=== PATIENT | female | born 1935 | race Caucasian/White ===

== ENCOUNTER 2022-11-09 09:59 | Observation (INO) | payer MEDICARE, OTHER ==
[2022-11-09] MEDS ORDERED: Sodium Chloride 0.9% 1000 ML 1,000 ML IV SCH (10:15)
--- NOTE | 2022-11-09 10:22 | ERPHSYRPT ---
- History of Present Illness Time Seen by Provider: 11/09/22 10:15 Source: EMS, old records Exam Limitations: clinical condition Physician History: This is an 87-year-old white female patient of Dr. Anderson brought to the emergency room by EMS service for altered level of consciousness. Patient was last seen approximately 8:52 PM last night where she was alert and oriented. This morning, she was sitting in a recliner with a low respiratory rate and not responding to family members who woke up to find her in that condition. EMS arrived and she was responding to painful stimuli but not responding to any other stimuli. Patient was in route to [facility] when the paramedics opted to divert her to our facility because of a very low respiration rate and they were using the Ambu bag to help ventilate this patient. Patient is DNR. This was reported to the paramedics verbally. In addition, the paramedics were provided a DO NOT RESUSCITATE document. Patient underwent an ERCP on 11/05/2022 in [place] at the [facility]. There were some postoperative complications that necessitated the patient stay an additional day and she was discharged home on 11/06/2022. Patient's blood sugar in route was 138. Patient's systolic blood pressure on arrival to the emergency department was 168. Timing/Duration: today Severity: moderate Character of Deficits: other (Altered level of consciousness) Deficits: cannot stand, cannot walk Baseline/Normal Cognition: alert oriented x 3 Current Cognition: poor alertness Baseline Gait: walks w/o assistance Associated Symptoms: other Allergies/Adverse Reactions: No Known Drug Allergies Allergy (Verified 11/09/22 10:38) Home Medications: Amlodipine Besylate 5 mg [Norvasc 5 mg] 5 mg PO DAILY 09/25/13 [History] Hydrochlorothiazide 25 mg [hydroDIURIL 25 MG] 25 mg PO DAILY 09/25/13 [History] Quinapril HCl 20 mg PO DAILY 09/25/13 [History] Furosemide [Lasix] 1 tab PO DAILY 11/09/22 [History] Magnesium Oxide 400 mg [Mag-Ox 400] 1 tab PO DAILY 11/09/22 [History] Paroxetine HCl 20 mg [Paxil 20 MG] 1 tab PO DAILY 11/09/22 [History] Potassium Chloride 1 tab PO DAILY 11/09/22 [History] Hx Influenza Vaccination/Date Given: Yes (2012) Hx Pneumococcal Vaccination/Date Given: Yes (2011) Travel Risk - International Travel Have you traveled outside of the country in past 3 weeks: No - Coronavirus Screening Are you exhibiting any of the following symptoms?: No Close contact with a COVID-19 positive Pt in past 14-21 Days: No - Review of Systems Constitutional: No Symptoms, Other (Patient unable to answer secondary to altered level of consciousness) Eyes: No Symptoms Ears, Nose, & Throat: No Symptoms Respiratory: No Symptoms Cardiac: No Symptoms Abdominal/Gastrointestinal: No Symptoms Genitourinary Symptoms: No Symptoms Musculoskeletal: No Symptoms Skin: No Symptoms Neurological: Lethargy, Other (Altered level of consciousness) Psychological: No Symptoms Endocrine: No Symptoms Hematologic/Lymphatic: No Symptoms Immunological/Allergic: No Symptoms All Other Systems: Reviewed and Negative - Past Medical History Pertinent Past Medical History: Yes Neurological History: No Pertinent History ENT History: Cataracts, Macular Degeneration, Other Cardiac History: Hypertension Respiratory History: No Pertinent History Endocrine Medical History: No Pertinent History Musculoskeletal History: Osteoarthritis GI Medical History: Polyps, Hemorrhoids, GERD History: No Pertinent History Psycho-Social History: No Pertinent History Female Reproductive Disorders: No Pertinent History Other Medical History: CARPAL TUNNEL SX NIKI 1996, CHOLECYSTECTOMY 2000, CATARACT SURGERY AND IMPLANTS 2003, LASER SURGERY BOTH EYES 2004 AND 2008 DUE TO [place] OATERS - Past Surgical History Past Surgical History: Yes Neuro Surgical History: No Pertinent History Cardiac: No Pertinent History Respiratory: No Pertinent History Gastrointestinal: Cholecystectomy Genitourinary: No Pertinent History Female Surgical History: Hysterectomy, Other Other Surgical History: bilateral cataracts. bilateral carpel tunnel. bladder tie up - Social History Smoking Status: Never smoker Exposure to second hand smoke: No Drug Use: none - Nursing Vital Signs Nursing Vital Signs: Initial Vital Signs Temperature 97.6 F 11/09/22 10:05 Pulse Rate 88 11/09/22 10:05 Respiratory Rate 10 L 11/09/22 10:05 Blood Pressure 173/79 11/09/22 10:05 O2 Sat by Pulse Oximetry 100 11/09/22 10:05 Pain Scale Pain Intensity 0 - Dennis Coma Scale Best Eye Response (Dennis): (2) open to pain Best Verbal Response (Dennis): (1) no verbal response Best Motor Response (Dennis): (4) withdraws to pain [place] Total: 7 - Physical Exam General Appearance: lethargy Eye Exam: bilateral eye: normal inspection, PERRL, EOMI (Unable to assess) Ears, Nose, Throat Exam: dry mucous membranes Respiratory: normal breath sounds, lungs clear, airway intact, other (Low respiratory rate), No chest tenderness, No respiratory distress Cardiovascular: regular rate/rhythm, normal heart sounds, normal peripheral pulses Gastrointestinal: soft, normal bowel sounds, No tenderness Pelvic Exam: not done Rectal Exam: not done Back Exam: normal inspection, other, No CVA tenderness, No vertebral tenderness Extremity Exam: pelvis stable, other (Patient's right side seems more stiff than the left side) Mental Status: lethargy Skin Exam: normal color, warm, dry SpO2 Interpretation: normal O2 Delivery: Oxymask - Course Nursing assessment & vital signs reviewed: Yes EKG Interpreted by Me: RATE (84), Sinus Rhythm, NORMAL AXIS, NORMAL INTERVALS, NORMAL QRS, NORMAL ST-T, Other (No acute ischemic changes) Ordered Tests: Active Orders 24 hr Category Date Time Status Catheter-Albert Banda STAT Care 11/09/22 10:12 Active Gastric Tube Insertion STAT Care 11/09/22 11:40 Active IV Insertion STAT Care 11/09/22 10:12 Active IV Insertion-2nd Peripheral STAT Care 11/09/22 11:34 Active ABDOMEN AND PELVIS W/0 CONTRAS [CT] Stat Exams 11/09/22 10:14 Completed CHEST 1 VIEW (PORTABLE) Stat Exams 11/09/22 12:00 Completed HEAD WITHOUT CONTRAST [CT] Stat Exams 11/09/22 10:14 Completed ABG [ARTERIAL BLOOD GASES] Stat Lab 11/09/22 10:45 Completed AMYLASE Stat Lab 11/09/22 10:40 Completed BLOOD CULTURE Stat Lab 11/09/22 11:30 Received CBC W DIFF Stat Lab 11/09/22 10:40 Completed CMP Stat Lab 11/09/22 10:40 Completed LIPASE Stat Lab 11/09/22 10:40 Completed UA W/RFX CULTURE Stat Lab 11/09/22 Completed Transfer Order Routine Transfer 11/09/22 Ordered Medication Summary Generic Name Dose Route Start Last Admin Trade Name Freq PRN Reason Stop Dose Admin Sodium Chloride 1,000 mls @ 100 mls/hr 11/09/22 10:15 11/09/22 10:50 Sodium Chloride 0.9% 1000 Ml IV 12/09/22 10:14 100 mls/hr .Q10H VIKAS Administration Discontinued Medications Generic Name Dose Route Start Last Admin Trade Name Shama PRN Reason Stop Dose Admin Lactulose 20 gm 11/09/22 11:45 11/09/22 12:25 Lactulose 20 Gm/30 Ml Udcup PO 11/09/22 11:46 20 gm STAT ONE Administration Ondansetron HCl 4 mg 11/09/22 11:19 11/09/22 11:37 Ondansetron Hcl 4 Mg/2 Ml Vial IV 11/09/22 11:20 4 mg STAT ONE Administration Ondansetron HCl Confirm 11/09/22 11:35 Ondansetron Hcl 4 Mg/2 Ml Vial Administered 11/09/22 11:36 Dose 4 mg .ROUTE .STK-MED ONE Lab/Rad Data: Laboratory Result Diagrams 11/09/22 10:40 11/09/22 10:40 Laboratory Results 11/09/22 11/09/22 11/09/22 Range/Units Unknown 10:45 10:40 WBC (4.0-10.5) x10^3/uL RBC (4.1-5.4) x10^6/uL Hgb (12.0-16.0) g/dL Hct (35-47) % MCV (78-100) fL MCH (26-32) pg MCHC (32-36) g/dL RDW (11.5-14.0) % Plt Count (150-450) x10^3/uL MPV (7.5-11.0) fL Gran % (36.0-66.0) % Immature Gran % (Auto) (0.00-0.4) % Nucleat RBC Rel Count (0.00-0.1) % Eos # (Auto) (0-0.5) x10^3/uL Immature Gran # (Auto) (0.00-0.03) x10^3u/L Absolute Lymphs (auto) (1.0-4.6) x10^3/uL Absolute Monos (auto) (0.0-1.3) x10^3/uL Absolute Nucleated RBC (0.00-0.01) x10^3u/L Lymphocytes % (24.0-44.0) % Monocytes % (0.0-12.0) % Eosinophils % (0.00-5.0) % Basophils % (0.0-0.4) % Absolute Granulocytes (1.4-6.9) x10^3/uL Basophils # (0-0.4) x10^3/uL Puncture Site RIGHT RADIAL pCO2 32 L (35-45) mmHg pO2 297 H* (75-100) mmHg Base Excess 5.1 H (-2.0-2.0) O2 Saturation 97.6 (94-100) g/dF ABG pH 7.54 H (7.35-7.45) ABG HCO3 27.4 (22-28) ABG O2 Sat (Measured) 100.0 (95-100) % Rubén Test YES Hemoglobin 12.4 Carboxyhemoglobin 1.2 (0.0-6.9) % THgb Methemoglobin 1.2 L (1.4-1.5) % Temperature 37.0 C POC O2 Flow Rate 21 % Sodium (137-145) mmol/L Potassium 3.3 L (3.5-5.1) mmol/L Chloride (98-107) mmol/L Carbon Dioxide (22-30) mmol/L Anion Gap (5-15) MEQ/L BUN (7-17) mg/dL Creatinine (0.52-1.04) mg/dL Estimated GFR ML/MIN Glucose (74-106) mg/dL Calcium (8.4-10.2) mg/dL Total Bilirubin (0.2-1.3) mg/dL AST (14-36) U/L ALT (0-35) U/L Alkaline Phosphatase (38-126) U/L Ammonia (9-30) umol/L Serum Total Protein (6.3-8.2) g/dL Albumin (3.5-5.0) g/dL Amylase (30-110) U/L Lipase (23-300) U/L Urinalys Dipstick Clnc MAIN LAB Urine Color DARK YELLOW (YELLOW) Urine Appearance CLEAR (CLEAR) Urine pH 6.0 (5-6) Ur Specific Dell 1.025 (1.005-1.025) POC Urine Protein Conf 30 A (Negative) Urine Ketones TRACE A (NEGATIVE) Urine Nitrite NEGATIVE (NEGATIVE) Urine Bilirubin SMALL A (NEGATIVE) Urine Urobilinogen >=8.0 A (0-1) mg/dL Urine Leukocytes NEGATIVE (NEGATIVE) Urine WBC (Auto) 3-5 A (0-5) /HPF Urine RBC (Auto) NONE (0-2) /HPF U Epithel Cells (Auto) NONE (FEW) /HPF Urine Bacteria (Auto) RARE (NEGATIVE) /HPF Urine RBC NEGATIVE (0-5) Abraham/ul Urine Mucus (Auto) SLIGHT A (NEGATIVE) /HPF Ur Culture Indicated? NO Urine Glucose NEGATIVE (NEGATIVE) mg/dL Influenza Type A Ag NEGATIVE (NEGATIVE) Influenza Type B Ag NEGATIVE (NEGATIVE) RSV (PCR) NEGATIVE (Negative) SARS-CoV-2 (PCR) NEGATIVE (NEGATIVE) 11/09/22 11/09/22 11/09/22 Range/Units 10:40 10:40 10:40 WBC 7.8 (4.0-10.5) x10^3/uL RBC 3.55 L (4.1-5.4) x10^6/uL Hgb 11.8 L (12.0-16.0) g/dL Hct 35.1 (35-47) % MCV 98.9 (78-100) fL MCH 33.2 H (26-32) pg MCHC 33.6 (32-36) g/dL RDW 14.3 H (11.5-14.0) % Plt Count 185 (150-450) x10^3/uL MPV 9.6 (7.5-11.0) fL Gran % 72.7 H (36.0-66.0) % Immature Gran % (Auto) 0.5 H (0.00-0.4) % Nucleat RBC Rel Count 0.0 (0.00-0.1) % Eos # (Auto) 0 (0-0.5) x10^3/uL Immature Gran # (Auto) 0.04 H (0.00-0.03) x10^3u/L Absolute Lymphs (auto) 1.42 (1.0-4.6) x10^3/uL Absolute Monos (auto) 0.65 (0.0-1.3) x10^3/uL Absolute Nucleated RBC 0.00 (0.00-0.01) x10^3u/L Lymphocytes % 18.2 L (24.0-44.0) % Monocytes % 8.3 (0.0-12.0) % Eosinophils % 0.0 (0.00-5.0) % Basophils % 0.3 (0.0-0.4) % Absolute Granulocytes 5.69 (1.4-6.9) x10^3/uL Basophils # 0.02 (0-0.4) x10^3/uL Puncture Site pCO2 (35-45) mmHg pO2 (75-100) mmHg Base Excess (-2.0-2.0) O2 Saturation (94-100) g/dF ABG pH (7.35-7.45) ABG HCO3 (22-28) ABG O2 Sat (Measured) (95-100) % Rubén Test Hemoglobin Carboxyhemoglobin (0.0-6.9) % THgb Methemoglobin (1.4-1.5) % Temperature C POC O2 Flow Rate % Sodium 139 (137-145) mmol/L Potassium 3.5 (3.5-5.1) mmol/L Chloride 108 H (98-107) mmol/L Carbon Dioxide 24 (22-30) mmol/L Anion Gap 9.9 (5-15) MEQ/L BUN 21 H (7-17) mg/dL Creatinine 0.52 (0.52-1.04) mg/dL Estimated GFR > 60.0 ML/MIN Glucose 127 H (74-106) mg/dL Calcium 8.7 (8.4-10.2) mg/dL Total Bilirubin 2.10 H (0.2-1.3) mg/dL AST 46 H (14-36) U/L ALT 23 (0-35) U/L Alkaline Phosphatase 159 H (38-126) U/L Ammonia 132 H (9-30) umol/L Serum Total Protein 6.9 (6.3-8.2) g/dL Albumin 3.1 L (3.5-5.0) g/dL Amylase 36 (30-110) U/L Lipase 171 (23-300) U/L Urinalys Dipstick Clnc Urine Color (YELLOW) Urine Appearance (CLEAR) Urine pH (5-6) Ur Specific Dell (1.005-1.025) POC Urine Protein Conf (Negative) Urine Ketones (NEGATIVE) Urine Nitrite (NEGATIVE) Urine Bilirubin (NEGATIVE) Urine Urobilinogen (0-1) mg/dL Urine Leukocytes (NEGATIVE) Urine WBC (Auto) (0-5) /HPF Urine RBC (Auto) (0-2) /HPF U Epithel Cells (Auto) (FEW) /HPF Urine Bacteria (Auto) (NEGATIVE) /HPF Urine RBC (0-5) Abraham/ul Urine Mucus (Auto) (NEGATIVE) /HPF Ur Culture Indicated? Urine Glucose (NEGATIVE) mg/dL Influenza Type A Ag (NEGATIVE) Influenza Type B Ag (NEGATIVE) RSV (PCR) (Negative) SARS-CoV-2 (PCR) (NEGATIVE) - Progress Progress: improved, re-examined Progress Note: 11/09/22 11:50 CT head without contrast shows a nonacute senile brain. CT of the abdomen pelvis without contrast shows a stable pancreatic head/uncinate mass. It also shows cirrhotic liver. Finally, it shows a new biliary stent, biliary pigtail catheter and diffuse pneumobilia. 11/09/22 12:53 Medical decision-making: This patient has mild hypokalemia, encephalopathy secondary to elevated ammonia level. I spoke with Dr. Verduzco who is covering for unassigned patients. We will place the patient in observation and provide her with lactulose via NG tube, IV hydration with potassium replacement. We will continue the Banda catheter. Patient is DNR. Discussed with : Slava Counseled pt/family regarding: lab results, diagnosis, rad results - Departure Departure Disposition: Observation Clinical Impression: Altered level of consciousness, Encephalopathy due to ammonia, Hypokalemia Condition: Fair Critical Care Time: No Referrals: AIDA ANDERSON [Primary Care Provider] - Follow up/PCP as directed
[2022-11-09 10:27] LABS: Appearance CLEAR (CLEAR); Bilirubin SMALL (NEGATIVE); Dipstick done @ ? MAIN LAB; Glucose NEGATIVE (NEGATIVE); Ketones TRACE (NEGATIVE); Nitrite NEGATIVE (NEGATIVE); Protein,Urine Dip 30 (Negative); RBC NEGATIVE Ery/ul (0-5); Specific Gravity 1.025 (1.005-1.025); Urobilinogen >=8.0 mg/dL (0-1)
[2022-11-09 10:28] LABS: Bacteria RARE /HPF (NEGATIVE); Mucus SLIGHT /HPF (NEGATIVE)
[2022-11-09 10:29] LABS: Urine Cultured Indicated? NO
[2022-11-09] MEDS ORDERED: Sodium Chloride 0.9% 1000 ML 1,000 ML ONE (10:49)
[2022-11-09 10:52] LABS: ABG HEMOGLOBIN 12.4; ABG POTASSIUM 3.3 (3.5-5.1); ARTERIAL BLOOD GAS BASE EXCESS 5.1 (-2.0-2.0); ARTERIAL BLOOD GAS FIO2 21 %; ARTERIAL BLOOD GAS PCO2 32 mmHg (35-45); ARTERIAL BLOOD GAS PO2 297 mmHg (75-100); ARTERIAL BLOOD GAS pH 7.54 (7.35-7.45); CARBOXYHEMOGLOBIN 1.2 % THgb (0.0-6.9); HCO3- 27.4 (22-28); HGB O2 SAT 97.6 g/dF (94-100); Methhemoglobin 1.2 % (1.4-1.5)
[2022-11-09 10:52] LABS: Absolute Neutrophil Ct (ANC) 5.69 x10^3/uL (1.4-6.9); Basophil (Absolute #) 0.02 x10^3/uL (0-0.4); Eosinophil (Absolute #) 0 x10^3/uL (0-0.5); Hematocrit 35.1 % (35-47); Hemoglobin 11.8 g/dL (12.0-16.0); Lymphocyte (Absolute #) 1.42 x10^3/uL (1.0-4.6); Lymphocytes % 18.2 % (24.0-44.0); Mean Cell Volume 98.9 fL (78-100); Mean Corpuscular Hemoglobin 33.2 pg (26-32); Mean Corpuscular Hgb Concent. 33.6 g/dL (32-36); Mean Platelet Volume 9.6 fL (7.5-11.0); Monocyte (Absolute #) 0.65 x10^3/uL (0.0-1.3); Monocytes % 8.3 % (0.0-12.0); Neutrophil % 72.7 % (36.0-66.0); Platelet Count 185 x10^3/uL (150-450); Red Blood Count 3.55 x10^6/uL (4.1-5.4); Red Cell Distribution Width 14.3 % (11.5-14.0); White Blood Count 7.8 x10^3/uL (4.0-10.5)
[2022-11-09 10:53] LABS: ABG SITE RIGHT RADIAL; ALLEN TEST OK? YES
[2022-11-09 11:09] LABS: ALBUMIN 3.1 g/dL (3.5-5.0); ALKALINE PHOSPHATASE 159 U/L (38-126); AMYLASE 36 U/L (30-110); ANION GAP 9.9 MEQ/L (5-15); BLOOD UREA NITROGEN 21 mg/dL (7-17); CHLORIDE 108 mmol/L (98-107); Calcium 8.7 mg/dL (8.4-10.2); Carbon Dioxide 24 mmol/L (22-30); Creatinine 1 0.52 mg/dL (0.52-1.04); EST GLOMERULAR FILTRATION RATE > 60.0 ML/MIN; Glucose 127 mg/dL (74-106); LIPASE 171 U/L (23-300); Potassium 3.5 mmol/L (3.5-5.1); SGOT/AST 46 U/L (14-36); SGPT/ALT 23 U/L (0-35); SODIUM 139 mmol/L (137-145); Total Protein 6.9 g/dL (6.3-8.2)
[2022-11-09] MEDS ORDERED: Zofran 4 MG/2 ML VIAL IV ONE (11:19)
[2022-11-09] MEDS ORDERED: Enulose 10 GM/15 ML PO ONE (11:21)
[2022-11-09 11:30] LABS: INFLUENZA A NEGATIVE (NEGATIVE); INFLUENZA B NEGATIVE (NEGATIVE); RESPIRATORY SYNCTIAL VIRUS NEGATIVE (Negative); SARS-CoV-2 Xpert Express NEGATIVE (NEGATIVE)
[2022-11-09] MEDS ORDERED: Zofran 4 MG/2 ML VIAL ONE (11:35)
--- NOTE | 2022-11-09 11:35 | XRAY ---
Indication: Acute mental status change. Multiple contiguous axial images obtained through the head without contrast. Comparison: None Age-appropriate global atrophy and mild periventricular degenerative micro-ischemia bilaterally. No acute intracranial hemorrhage, abnormal extra-axial fluid collection, or mass effect. Fourth ventricle is midline without hydrocephalus. Bony calvarium intact. Visualized paranasal sinuses and mastoid air cells are clear. Impression: Nonacute senile brain.
[2022-11-09] MEDS ORDERED: LACTULOSE 20 GM/30ML UD CUP PO ONE (11:45)
--- NOTE | 2022-11-09 11:45 | XRAY ---
Indication: Abdomen pain. Status post ERCP. Multiple contiguous axial images obtained through the abdomen and pelvis without contrast. Comparison: December 22, 2021 Lung bases now demonstrates mild dependent atelectasis and tiny right effusion. Previous left effusion has cleared. There remains minimal bibasilar fibrosis/scarring. Heart not enlarged. Stable small hiatal hernia. Noncontrasted stomach and bowel loops appear nonobstructed again with normal appendix. There remains mild diffuse scattered colonic fecal debris and scattered colonic diverticulosis. Grossly stable large pancreatic head/uncinate heterogeneous mass and cirrhotic appearing liver. Interval cholecystectomy with new biliary stent, biliary pigtail catheter terminating transverse duodenum, and diffuse pneumobilia. Urinary bladder near empty with new Banda balloon catheter in situ. No free fluid/air. Remaining liver, pancreas, spleen, adrenal glands, kidneys, ureters, and bladder are unremarkable for noncontrast exam. Again mild scattered aortoiliac calcifications. Osseous structures intact again with osteopenia, mild levoscoliosis, mild/moderate degenerative changes throughout the spine, and minimal grade 1 spondylolisthesis of L2-L4. No suspicious bony lesions. Impression: 1. Status post cholecystectomy with new biliary stent, biliary pigtail catheter, and diffuse pneumobilia. 2. New tiny right pleural effusion/atelectasis. 3. Grossly stable large pancreatic head/uncinate mass. 4. Again cirrhotic liver, diffuse fecal stasis, colonic diverticulosis, arteriosclerotic disease, and chronic bony findings.
--- NOTE | 2022-11-09 12:23 | XRAY ---
Indication: NG tube placement. Comparison: None Portable chest demonstrates NG tube traversing chest with tip projecting just below diaphragm presumed in proximal stomach. Lungs demonstrate CT proven minimal right base atelectasis/effusion. Remaining heart and left lung unremarkable. Bony thorax intact with osteopenia and degenerative changes
[2022-11-09] MEDS ORDERED: Zofran 4 MG/2 ML VIAL IV PRN (13:43)
[2022-11-09] MEDS ORDERED: FEVERALL 650 MG PR PRN (13:43)
[2022-11-09] MEDS: Enulose 10 GM/15 ML NG SCH ×3 (13:52→21:53)
[2022-11-09] MEDS: Sodium Chloride 0.9% 1000 ML 1,000 ML IV SCH (17:32)
[2022-11-09] MEDS: PROTONIX 40 MG IV IV SCH (17:33)
[2022-11-10] MEDS: Sodium Chloride 0.9% 1000 ML 1,000 ML IV SCH ×2 (05:36→19:48)
[2022-11-10 06:22] LABS: Absolute Neutrophil Ct (ANC) 5.23 x10^3/uL (1.4-6.9); Basophil (Absolute #) 0.03 x10^3/uL (0-0.4); Eosinophil % 0.5 % (0.00-5.0); Eosinophil (Absolute #) 0.04 x10^3/uL (0-0.5); Hematocrit 29.6 % (35-47); Hemoglobin 10.2 g/dL (12.0-16.0); Lymphocyte (Absolute #) 1.31 x10^3/uL (1.0-4.6); Lymphocytes % 17.5 % (24.0-44.0); Mean Cell Volume 96.7 fL (78-100); Mean Corpuscular Hemoglobin 33.3 pg (26-32); Mean Corpuscular Hgb Concent. 34.5 g/dL (32-36); Mean Platelet Volume 9.7 fL (7.5-11.0); Monocyte (Absolute #) 0.85 x10^3/uL (0.0-1.3); Monocytes % 11.3 % (0.0-12.0); Neutrophil % 69.8 % (36.0-66.0); Platelet Count 179 x10^3/uL (150-450); Red Blood Count 3.06 x10^6/uL (4.1-5.4); Red Cell Distribution Width 14.6 % (11.5-14.0); White Blood Count 7.5 x10^3/uL (4.0-10.5)
[2022-11-10 07:03] LABS: ALBUMIN 2.4 g/dL (3.5-5.0); ALKALINE PHOSPHATASE 132 U/L (38-126); ANION GAP 7.5 MEQ/L (5-15); BLOOD UREA NITROGEN 17 mg/dL (7-17); CHLORIDE 110 mmol/L (98-107); Calcium 7.9 mg/dL (8.4-10.2); Carbon Dioxide 26 mmol/L (22-30); Creatinine 1 0.53 mg/dL (0.52-1.04); EST GLOMERULAR FILTRATION RATE > 60.0 ML/MIN; Glucose 105 mg/dL (74-106); SGOT/AST 39 U/L (14-36); SGPT/ALT 19 U/L (0-35); SODIUM 140 mmol/L (137-145); Total Protein 5.8 g/dL (6.3-8.2)
[2022-11-10] MEDS ORDERED: K-LYTE PO ONE ×2 (07:48→10:00)
[2022-11-10] MEDS ORDERED: FLUZONE HIGH-DOSE QUAD 2022-23 IM ONE (10:00)
[2022-11-10] MEDS: PROTONIX 40 MG IV IV SCH (15:02)
[2022-11-11 08:08] LABS: Absolute Neutrophil Ct (ANC) 5.08 x10^3/uL (1.4-6.9); Basophil (Absolute #) 0.04 x10^3/uL (0-0.4); Eosinophil % 2.5 % (0.00-5.0); Eosinophil (Absolute #) 0.22 x10^3/uL (0-0.5); Hematocrit 32.5 % (35-47); Hemoglobin 10.6 g/dL (12.0-16.0); Lymphocyte (Absolute #) 2.28 x10^3/uL (1.0-4.6); Lymphocytes % 26.3 % (24.0-44.0); Mean Cell Volume 102.2 fL (78-100); Mean Corpuscular Hemoglobin 33.3 pg (26-32); Mean Corpuscular Hgb Concent. 32.6 g/dL (32-36); Mean Platelet Volume 9.4 fL (7.5-11.0); Monocyte (Absolute #) 1.02 x10^3/uL (0.0-1.3); Monocytes % 11.8 % (0.0-12.0); Neutrophil % 58.6 % (36.0-66.0); Platelet Count 178 x10^3/uL (150-450); Red Blood Count 3.18 x10^6/uL (4.1-5.4); Red Cell Distribution Width 14.6 % (11.5-14.0); White Blood Count 8.7 x10^3/uL (4.0-10.5)
[2022-11-11 08:28] LABS: ALBUMIN 2.5 g/dL (3.5-5.0); ALKALINE PHOSPHATASE 129 U/L (38-126); ANION GAP 7.7 MEQ/L (5-15); BLOOD UREA NITROGEN 14 mg/dL (7-17); CHLORIDE 109 mmol/L (98-107); Calcium 7.6 mg/dL (8.4-10.2); Carbon Dioxide 24 mmol/L (22-30); Creatinine 1 0.55 mg/dL (0.52-1.04); EST GLOMERULAR FILTRATION RATE > 60.0 ML/MIN; Glucose 134 mg/dL (74-106); SGOT/AST 48 U/L (14-36); SGPT/ALT 21 U/L (0-35); SODIUM 138 mmol/L (137-145)
[2022-11-11] MEDS: MAG-OX 400 PO SCH (09:16)
[2022-11-11] MEDS: Paxil 20 MG PO SCH (09:16)
[2022-11-11] MEDS: Lasix 40 MG PO SCH (09:16)
[2022-11-11] MEDS: Klor Con PO SCH (09:16)
[2022-11-11] MEDS: Accupril 10MG Tablet PO SCH (09:16)
[2022-11-11] MEDS: hydroDIURIL 25 MG PO SCH (09:16)
[2022-11-11] MEDS: NORVASC 5 MG PO SCH (09:17)
[2022-11-11] MEDS ORDERED: NON-FORMULARY ITEM (Potassium Chloride [Potassium Chloride] 8 MEQ Tablet.Er) PO SCH (10:00)
[2022-11-11] MEDS ORDERED: QUINAPRIL HCL 20 MG PO SCH (10:00)
[2022-11-11] MEDS ORDERED: Klor Con PO ONE ×2 (10:10→12:00)
[2022-11-11] MEDS ORDERED: TYLENOL 325 MG PO PRN (10:12)
[2022-11-11] MEDS: Protonix 40MG Tablet PO SCH (12:07)
--- NOTE | 2022-11-11 13:49 | PCM.HP ---
History of Present Illness - Chief Complaint Chief Complaint: encepholopathy secondary to elevated ammonia Date: 11/10/22 History of Present Illness: is a 87 year old female patient of Dr Anderson who was admitted though ER with encephalopathy due to high serum ammonia levels.She was alert and oriented at bedtime and was found with shallow breathing ,responding only to deep pain stimulus. Patient had ERCP in [place] recently and was diagnosed with cirrhosis and benign mass in the pancreas. Family states they were unaware of Hx cirrhosis. Ammonia levels have come down quickly with lactulose and patient is alert and is oriented to person and place. - Review of Systems Constitutional: Lethargy Eyes: No Symptoms Ears, Nose, & Throat: No Symptoms Respiratory: Other (breathing normal now -had shallow breathing before coming toER) Cardiac: No Symptoms Abdominal/Gastrointestinal: Nausea, No Abdominal Pain, No Vomiting, No Diarrhea Genitourinary Symptoms: No Symptoms Musculoskeletal: No Symptoms Skin: No Symptoms Neurological: Lethargy Psychological: No Alcohol Abuse, No Anxiety, No Depression Endocrine: No Symptoms Hematologic/Lymphatic: Anemia Medications & Allergies Home Medications: Home Medication List Amlodipine Besylate 5 mg [Norvasc 5 mg] 5 mg PO DAILY 09/25/13 [History Confirmed 11/09/22] Hydrochlorothiazide 25 mg [hydroDIURIL 25 MG] 25 mg PO DAILY 09/25/13 [History Confirmed 11/09/22] Quinapril HCl 20 mg PO DAILY 09/25/13 [History Confirmed 11/09/22] Furosemide [Lasix] 1 tab PO DAILY 11/09/22 [History Confirmed 11/09/22] Magnesium Oxide 400 mg [Mag-Ox 400] 1 tab PO DAILY 11/09/22 [History Confirmed 11/09/22] Paroxetine HCl 20 mg [Paxil 20 MG] 1 tab PO DAILY 11/09/22 [History Confirmed 11/09/22] Potassium Chloride 1 tab PO DAILY 11/09/22 [History Confirmed 11/09/22] Allergies/Adverse Reactions: Allergies Allergy/AdvReac Type Severity Reaction Status Date / Time No Known Drug Allergies Allergy Verified 11/09/22 10:38 - Past Medical History Past Medical History: Yes Neurological History: No Pertinent History ENT History: Cataracts, Macular Degeneration, Other Cardiac History: Hypertension Respiratory History: Other Endocrine Medical History: No Pertinent History Musculoskelatal History: Osteoarthritis GI Medical History: GERD, Hemorrhoids, Polyps, Other History: No Pertinent History Pyscho-Social History: No Pertinent History Reproductive Disorders: No Pertinent History Comment: CARPAL TUNNEL SX NIKI 1996, CHOLECYSTECTOMY 2000, CATARACT SURGERY AND I MPLANTS 2003, LASER SURGERY BOTH EYES 2004 AND 2008 DUE TO FLOATERS. 11/05/22 - patient had surgery at to remove stents from pancreas and common bile duct. 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 - Past Surgical History Past Surgical History: Yes Neuro Surgical History: No Pertinent History Cardiac History: No Pertinent History Respiratory Surgery: No Pertinent History GI Surgical History: Cholecystectomy, Pancreatic Surgery, Other Genitourinary Surgical Hx: No Pertinent History Female Surgical History: Hysterectomy, Other Other Surgical History: bilateral cataracts. bilateral carpel tunnel. bladder tie up. pancreatic stents- - Social History Smoking Status: Never smoker Exposure to second hand smoke: No Alcohol: None Drug Use: none - Physical Exam Vital Signs: Vital Signs - 24 hr Temp Pulse Resp BP BP Pulse Ox 11/11/22 11:56 99.9 F 87 16 137/64 152/99 97 11/11/22 07:51 100.0 F 80 18 137/64 99 11/11/22 04:00 99.6 F 73 18 143/65 97 11/10/22 23:43 100.6 F 86 20 137/69 97 11/10/22 19:37 100.0 F 82 20 160/70 99 11/10/22 16:00 100.1 F 80 18 147/67 91 L General Appearance: no apparent distress (propped up in bed able to answer questions with 1-2 words) Eye Exam: eyes nml inspection Ears, Nose, Throat Exam: normal ENT inspection Neck Exam: normal inspection Respiratory Exam: diminished breath sounds, No crackles/rales, No rhonchi, No wheezing Cardiovascular Exam: regular rate/rhythm, other (low grade fever) Gastrointestinal/Abdomen Exam: normal bowel sounds, No tenderness Pelvic Exam: not done Rectal Exam: not done Back Exam: normal inspection Extremity Exam: normal inspection Skin Exam: normal color, warm, dry Results - Labs Lab/Micro Results: Lab Results-Last 24 Hours 12/18/22 12/18/22 Range/Units 08:04 08:04 WBC 8.7 (4.0-10.5) x10^3/uL RBC 3.18 L (4.1-5.4) x10^6/uL Hgb 10.6 L (12.0-16.0) g/dL Hct 32.5 L (35-47) % MCV 102.2 H (78-100) fL MCH 33.3 H (26-32) pg MCHC 32.6 (32-36) g/dL RDW 14.6 H (11.5-14.0) % Plt Count 178 (150-450) x10^3/uL MPV 9.4 (7.5-11.0) fL Gran % 58.6 (36.0-66.0) % Immature Gran % (Auto) 0.3 (0.00-0.4) % Nucleat RBC Rel Count 0.0 (0.00-0.1) % Eos # (Auto) 0.22 (0-0.5) x10^3/uL Immature Gran # (Auto) 0.03 (0.00-0.03) x10^3u/L Absolute Lymphs (auto) 2.28 (1.0-4.6) x10^3/uL Absolute Monos (auto) 1.02 (0.0-1.3) x10^3/uL Absolute Nucleated RBC 0.00 (0.00-0.01) x10^3u/L Lymphocytes % 26.3 (24.0-44.0) % Monocytes % 11.8 (0.0-12.0) % Eosinophils % 2.5 (0.00-5.0) % Basophils % 0.5 (0.0-0.4) % Absolute Granulocytes 5.08 (1.4-6.9) x10^3/uL Basophils # 0.04 (0-0.4) x10^3/uL Sodium 138 (137-145) mmol/L Potassium 3.0 L* (3.5-5.1) mmol/L Chloride 109 H (98-107) mmol/L Carbon Dioxide 24 (22-30) mmol/L Anion Gap 7.7 (5-15) MEQ/L BUN 14 (7-17) mg/dL Creatinine 0.55 (0.52-1.04) mg/dL Estimated GFR > 60.0 ML/MIN Glucose 134 H (74-106) mg/dL Calcium 7.6 L (8.4-10.2) mg/dL Total Bilirubin 2.00 H (0.2-1.3) mg/dL AST 48 H (14-36) U/L ALT 21 (0-35) U/L Alkaline Phosphatase 129 H (38-126) U/L Serum Total Protein 6.0 L (6.3-8.2) g/dL Albumin 2.5 L (3.5-5.0) g/dL Assessment/Plan (1) Encephalopathy due to ammonia Current Visit: Yes Status: Resolved Assessment & Plan: lactose tolerated without diarrhea Code(s): T59.891A - TOXIC EFFECT OF GASES, FUMES AND VAPORS, ACCIDENTAL, INIT; G92.8 - OTHER TOXIC ENCEPHALOPATHY (2) Hypokalemia Current Visit: Yes Status: Acute Assessment & Plan: was given potassium via NG tube will follow Code(s): E87.6 - HYPOKALEMIA (3) Pancreatic mass Current Visit: Yes Status: Acute Assessment & Plan: head of pancreas,benign (4) Cirrhosis of liver Current Visit: Yes Status: Suspected Qualifiers: Hepatic cirrhosis type: unspecified hepatic cirrhosis (5) Hypertension Current Visit: Yes Status: Chronic Assessment & Plan: monitor Code(s): I10 - ESSENTIAL (PRIMARY) HYPERTENSION
--- NOTE | 2022-11-11 14:35 | PCM.NOTE ---
Date and Time: 11/11/221428 Subjective Assessment: Patient is improving. Had tolerated full liquid to soft diet,denies abd pain or N/V/D. Potassium level still 3.0 after receiving oral supplement. Objective Exam General Appearance: no apparent distress (groggy ,just finishing lunch) Neurologic Exam: oriented x 3 Skin Exam: normal color, warm, dry Respiratory Exam: normal breath sounds Cardiovascular Exam: regular rate/rhythm Gastrointestinal/Abdomen Exam: normal bowel sounds, No tenderness Extremity Exam: normal inspection OBJECTIVE DATA Vital Signs: Vital Signs - 24 hr Temp Pulse Resp BP BP Pulse Ox 11/11/22 11:56 99.9 F 87 16 137/64 152/99 97 11/11/22 07:51 100.0 F 80 18 137/64 99 11/11/22 04:00 99.6 F 73 18 143/65 97 11/10/22 23:43 100.6 F 86 20 137/69 97 11/10/22 19:37 100.0 F 82 20 160/70 99 11/10/22 16:00 100.1 F 80 18 147/67 91 L Pain Assessment - Last Documented Pain Intensity 0 Intake and Output: Intake & Output 11/09/22 11/10/22 11/11/22 11/12/22 11:59 11:59 11:59 11:59 Intake Total 1104 4272 300 Output Total 400 700 400 Balance -564 051 9997 300 Weight 80.739 kg 81.2 kg 83 kg Lab Results: Lab Results-Last 24 Hours 11/11/22 11/11/22 11/11/22 Range/Units 08:04 08:04 13:59 WBC 8.7 (4.0-10.5) x10^3/uL RBC 3.18 L (4.1-5.4) x10^6/uL Hgb 10.6 L (12.0-16.0) g/dL Hct 32.5 L (35-47) % MCV 102.2 H (78-100) fL MCH 33.3 H (26-32) pg MCHC 32.6 (32-36) g/dL RDW 14.6 H (11.5-14.0) % Plt Count 178 (150-450) x10^3/uL MPV 9.4 (7.5-11.0) fL Gran % 58.6 (36.0-66.0) % Immature Gran % (Auto) 0.3 (0.00-0.4) % Nucleat RBC Rel Count 0.0 (0.00-0.1) % Eos # (Auto) 0.22 (0-0.5) x10^3/uL Immature Gran # (Auto) 0.03 (0.00-0.03) x10^3u/L Absolute Lymphs (auto) 2.28 (1.0-4.6) x10^3/uL Absolute Monos (auto) 1.02 (0.0-1.3) x10^3/uL Absolute Nucleated RBC 0.00 (0.00-0.01) x10^3u/L Lymphocytes % 26.3 (24.0-44.0) % Monocytes % 11.8 (0.0-12.0) % Eosinophils % 2.5 (0.00-5.0) % Basophils % 0.5 (0.0-0.4) % Absolute Granulocytes 5.08 (1.4-6.9) x10^3/uL Basophils # 0.04 (0-0.4) x10^3/uL Sodium 138 (137-145) mmol/L Potassium 3.0 L* 3.0 L* (3.5-5.1) mmol/L Chloride 109 H (98-107) mmol/L Carbon Dioxide 24 (22-30) mmol/L Anion Gap 7.7 (5-15) MEQ/L BUN 14 (7-17) mg/dL Creatinine 0.55 (0.52-1.04) mg/dL Estimated GFR > 60.0 ML/MIN Glucose 134 H (74-106) mg/dL Calcium 7.6 L (8.4-10.2) mg/dL Total Bilirubin 2.00 H (0.2-1.3) mg/dL AST 48 H (14-36) U/L ALT 21 (0-35) U/L Alkaline Phosphatase 129 H (38-126) U/L Ammonia (9-30) umol/L Serum Total Protein 6.0 L (6.3-8.2) g/dL Albumin 2.5 L (3.5-5.0) g/dL 11/11/22 Range/Units 13:59 WBC (4.0-10.5) x10^3/uL RBC (4.1-5.4) x10^6/uL Hgb (12.0-16.0) g/dL Hct (35-47) % MCV (78-100) fL MCH (26-32) pg MCHC (32-36) g/dL RDW (11.5-14.0) % Plt Count (150-450) x10^3/uL MPV (7.5-11.0) fL Gran % (36.0-66.0) % Immature Gran % (Auto) (0.00-0.4) % Nucleat RBC Rel Count (0.00-0.1) % Eos # (Auto) (0-0.5) x10^3/uL Immature Gran # (Auto) (0.00-0.03) x10^3u/L Absolute Lymphs (auto) (1.0-4.6) x10^3/uL Absolute Monos (auto) (0.0-1.3) x10^3/uL Absolute Nucleated RBC (0.00-0.01) x10^3u/L Lymphocytes % (24.0-44.0) % Monocytes % (0.0-12.0) % Eosinophils % (0.00-5.0) % Basophils % (0.0-0.4) % Absolute Granulocytes (1.4-6.9) x10^3/uL Basophils # (0-0.4) x10^3/uL Sodium (137-145) mmol/L Potassium (3.5-5.1) mmol/L Chloride (98-107) mmol/L Carbon Dioxide (22-30) mmol/L Anion Gap (5-15) MEQ/L BUN (7-17) mg/dL Creatinine (0.52-1.04) mg/dL Estimated GFR ML/MIN Glucose (74-106) mg/dL Calcium (8.4-10.2) mg/dL Total Bilirubin (0.2-1.3) mg/dL AST (14-36) U/L ALT (0-35) U/L Alkaline Phosphatase (38-126) U/L Ammonia 38 H (9-30) umol/L Serum Total Protein (6.3-8.2) g/dL Albumin (3.5-5.0) g/dL Assessment/Plan (1) Encephalopathy due to ammonia Current Visit: Yes Status: Resolved Code(s): T59.891A - TOXIC EFFECT OF GASES, FUMES AND VAPORS, ACCIDENTAL, INIT; G92.8 - OTHER TOXIC ENCEPHALOPATHY (2) Hypokalemia Current Visit: Yes Status: Acute Code(s): E87.6 - HYPOKALEMIA (3) Pancreatic mass Current Visit: Yes Status: Acute (4) Cirrhosis of liver Current Visit: Yes Status: Suspected Qualifiers: Hepatic cirrhosis type: unspecified hepatic cirrhosis (5) Hypertension Current Visit: Yes Status: Chronic Code(s): I10 - ESSENTIAL (PRIMARY) HYPERTENSION
[2022-11-11] MEDS ORDERED: K-LYTE PO ONE ×2 (15:00→17:00)
[2022-11-12 06:52] VITALS: O2SAT 97
[2022-11-12] MEDS: Paxil 20 MG PO SCH (09:02)
[2022-11-12] MEDS: Klor Con PO SCH (09:02)
[2022-11-12] MEDS: Lasix 40 MG PO SCH (09:02)
[2022-11-12] MEDS: Protonix 40MG Tablet PO SCH (09:02)
[2022-11-12] MEDS: MAG-OX 400 PO SCH (09:02)
[2022-11-12] MEDS: hydroDIURIL 25 MG PO SCH (09:02)
[2022-11-12] MEDS: Accupril 10MG Tablet PO SCH (09:02)
[2022-11-12] MEDS: NORVASC 5 MG PO SCH (09:02)
[2022-11-12 11:29] VITALS: BP 94/44; PULSE 77
== END 2022-11-12 16:39 | disposition hospice, home (50) ==
LOC: ED 09:59 → MED SURG 13:42
PROVIDERS: ADMIT Family Medicine; ATTEND Family Medicine
DX: T59.891A Toxic effect of other specified gases, fumes and vapors, accidental (unintentional), initial encounter (principal); G92.8 Other toxic encephalopathy; R41.82 Altered mental status, unspecified; E87.6 Hypokalemia; K86.9 Disease of pancreas, unspecified; K74.60 Unspecified cirrhosis of liver; I10 Essential (primary) hypertension; Z79.899 Other long term (current) drug therapy; Z20.828 Contact with and (suspected) exposure to other viral communicable diseases
CPT/HCPCS: 0241U; 36000; 36415; 36600; 51702; 70450; 71045; 74176; 80053; 81015; 82140; 82150; 82375; 82803; 83690; 83735; 84132; 85025; 87040; 93005; 96360; 96361; 96374; 99285; G0378; J2405; A9270-GY

== ENCOUNTER 2023-01-20 08:27 | Observation (INO) | payer MEDICARE, OTHER ==
[2023-01-20] MEDS ORDERED: Sodium Chloride 0.9% 1000 ML 1,000 ML IV SCH (08:45)
--- NOTE | 2023-01-20 08:53 | ERPHSYRPT ---
- History of Present Illness Time Seen by Provider: 01/20/23 08:40 Source: EMS, old records, other (Hospice nurse) Exam Limitations: clinical condition Patient Subjective Stated Complaint: Unresponsive Triage Nursing Assessment: Patient brought into ED per EMS and transferred to bed with assist of 4. Patient unresponsive. Patient's skin pink, warm and dry. Patient's clothing noted to be saturated in urine. Patient has a sweet odor noted. Physician History: Patient is an 87-year-old white female DNR hospice patient who presents by ambulance with a history of being found breathing but unresponsive. Patient has a history of altered mental status in the past with an encephalopathy due to hyperammonemia she also has history of cirrhosis of the liver hypertension a benign pancreatic mass and hypokalemia. Patient also besides being unresponsive today nursing staff from hospice reports she had several vomiting episodes yesterday was treated with Zofran every 4 hours her last dose at 2 AM today she has not had any further vomiting. Patient also had patient also had a recent urinary tract infection. Timing/Duration: today Severity: severe Deficits: bed-ridden Baseline/Normal Cognition: poor alertness Current Cognition: poor alertness Baseline Gait: unable to walk Associated Symptoms: loss of consciousness, nausea, vomiting Allergies/Adverse Reactions: No Known Drug Allergies Allergy (Verified 01/20/23 08:37) Home Medications: Amlodipine Besylate 5 mg [Norvasc 5 mg] 5 mg PO DAILY 09/25/13 [History] Hydrochlorothiazide 25 mg [hydroDIURIL 25 MG] 25 mg PO DAILY 09/25/13 [History] Quinapril HCl 20 mg PO DAILY 09/25/13 [History] Furosemide [Lasix] 1 tab PO DAILY 11/09/22 [History] Magnesium Oxide 400 mg [Mag-Ox 400] 1 tab PO DAILY 11/09/22 [History] Paroxetine HCl 20 mg [Paxil 20 MG] 1 tab PO DAILY 11/09/22 [History] Potassium Chloride 1 tab PO DAILY 11/09/22 [History] Hx Tetanus, Diphtheria Vaccination/Date Given: Yes Hx Influenza Vaccination/Date Given: Yes Hx Pneumococcal Vaccination/Date Given: Yes Immunizations Up to Date: Yes Travel Risk - International Travel Have you traveled outside of the country in past 3 weeks: No - Coronavirus Screening Are you exhibiting any of the following symptoms?: No Close contact with a COVID-19 positive Pt in past 14-21 Days: No - Vaccine Status Have you recieved a Covid-19 vaccination: Yes 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 - Vaccination Dates Date of 2cond Vaccination (if applicable): February 2021 - Review of Systems All Other Systems: Unable due to condition - Past Medical History Pertinent Past Medical History: Yes Neurological History: No Pertinent History ENT History: Cataracts, Macular Degeneration, Other Cardiac History: Hypertension Respiratory History: Other Endocrine Medical History: No Pertinent History Musculoskeletal History: Osteoarthritis GI Medical History: GERD, Hemorrhoids, Polyps, Other History: No Pertinent History Psycho-Social History: No Pertinent History Female Reproductive Disorders: No Pertinent History Other Medical History: CARPAL TUNNEL SX NIKI 1996, CHOLECYSTECTOMY 2000, CATARACT SURGERY AND IMPLANTS 2003, LASER SURGERY BOTH EYES 2004 AND 2008 DUE TO FLOATERS. 11/05/22 - patient had surgery at to remove stents from pancreas and common bile duct. 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 - Past Surgical History Past Surgical History: Yes Neuro Surgical History: No Pertinent History Cardiac: No Pertinent History Respiratory: No Pertinent History Gastrointestinal: Cholecystectomy, Pancreatic Surgery, Other Genitourinary: No Pertinent History Female Surgical History: Hysterectomy, Other Other Surgical History: bilateral cataracts. bilateral carpel tunnel. bladder tie up. pancreatic stents- - Social History Smoking Status: Never smoker Exposure to second hand smoke: No Drug Use: none Patient Lives Alone: No - Nursing Vital Signs Nursing Vital Signs: Initial Vital Signs Temperature 98.1 F 01/20/23 08:37 Pulse Rate 107 H 01/20/23 08:37 Respiratory Rate 22 01/20/23 08:37 Blood Pressure 172/77 01/20/23 08:37 O2 Sat by Pulse Oximetry 98 01/20/23 08:37 Pain Scale Pain Intensity 0 - [place] Coma Scale Best Eye Response (Dennis): (1) no response Best Verbal Response (Dennis): (1) no verbal response Best Motor Response (Dennis): (4) withdraws to pain [place] Total: 6 - Physical Exam General Appearance: lethargy, obese Eye Exam: bilateral eye: normal inspection, PERRL, EOMI Ears, Nose, Throat Exam: other (Protruding tongue) Neck Exam: normal inspection, non-tender, supple Respiratory: airway intact, crackles/rales, rhonchi, No respiratory distress Cardiovascular: regular rate/rhythm, No edema Gastrointestinal: normal bowel sounds, distention, No guarding Back Exam: normal inspection Extremity Exam: normal inspection Mental Status: unresponsive Skin Exam: warm, dry SpO2 Interpretation: normal SpO2: 98 O2 Delivery: Room Air - Course EKG Interpreted by Me: RATE (105), Sinus Tach, Left Villanueva Deviation, prolonged QT interval - Radiology Exams Chest X-ray Interpretation: Interpreted by me, Other (Chronic changes no acute processes identified.) Abdomen X-ray Interpretation: Interpreted by me, Other (Film done of the chest and abdomen for tube placement appears to be in good position.) Ordered Tests: Active Orders 24 hr Category Date Time Status EKG-ER Only STAT Care 01/20/23 08:34 Active Banda [Catheter-[place] Banda] STAT Care 01/20/23 09:17 Active IV Insertion STAT Care 01/20/23 08:34 Active CHEST 1 VIEW (PORTABLE) Stat Exams 01/20/23 08:35 Taken CHEST 1 VIEW (PORTABLE) Stat Exams 01/20/23 09:40 Ordered AMYLASE Stat Lab 01/20/23 08:50 Completed BLOOD CULTURE Stat Lab 01/20/23 08:50 Received CBC W DIFF Stat Lab 01/20/23 08:50 Completed CMP Stat Lab 01/20/23 08:50 Completed CULTURE,URINE Stat Lab 01/20/23 09:17 Received LIPASE Stat Lab 01/20/23 08:50 Completed Lactic Acid Stat Lab 01/20/23 09:15 Completed PROTIME WITH INR Stat Lab 01/20/23 08:50 Completed TROPONIN Q4H Lab 01/20/23 08:50 Received TROPONIN Q4H Lab 01/20/23 12:45 Ordered TROPONIN Q4H Lab 01/20/23 16:45 Ordered UA W/RFX UR CULTURE Stat Lab 01/20/23 09:17 Received Medication Summary Generic Name Dose Route Start Last Admin Trade Name Freq PRN Reason Stop Dose Admin Sodium Chloride 1,000 mls @ 100 mls/hr 01/20/23 08:45 01/20/23 08:56 Sodium Chloride 0.9% 1000 Ml IV 02/19/23 08:44 100 mls/hr .Q10H VIKAS Administration Metronidazole 500 mg in 100 mls @ 200 mls/hr 01/20/23 09:47 Flagyl 500 Mg Ivpb IV 01/20/23 10:16 STAT STA Multivitamins/Minerals 10 ml/ 1,000 mls @ 100 mls/hr 01/20/23 10:00 Thiamine HCl 100 mg/ Folic IV 02/19/23 09:59 Acid 1 mg/ Sodium Chloride .Q10H VIKAS Ceftriaxone Sodium/Dextrose 1 g in 50 mls @ 100 mls/hr 01/20/23 09:52 Rocephin 1 Gm-D5w 50 Ml Bag IV 01/20/23 10:21 STAT STA Lactulose 30 g 01/20/23 09:45 Lactulose 10 G/15 Ml Ml NG 02/19/23 09:44 Q4H [facility] Zinc Gluconate 50 mg 01/20/23 10:00 Zinc Gluconate 50 Mg Tablet NG 02/19/23 09:59 DAILY [facility] Lab/Rad Data: Laboratory Result Diagrams 01/20/23 08:50 01/20/23 08:50 Laboratory Results 01/20/23 01/20/23 01/20/23 Range/Units 09:17 09:15 08:50 WBC (4.0-10.5) x10^3/uL RBC (4.1-5.4) x10^6/uL Hgb (12.0-16.0) g/dL Hct (35-47) % MCV (78-100) fL MCH (26-32) pg MCHC (32-36) g/dL RDW (11.5-14.0) % Plt Count (150-450) x10^3/uL MPV (7.5-11.0) fL Gran % (36.0-66.0) % Immature Gran % (Auto) (0.00-0.4) % Nucleat RBC Rel Count (0.00-0.1) % Eos # (Auto) (0-0.5) x10^3/uL Immature Gran # (Auto) (0.00-0.03) x10^3u/L Absolute Lymphs (auto) (1.0-4.6) x10^3/uL Absolute Monos (auto) (0.0-1.3) x10^3/uL Absolute Nucleated RBC (0.00-0.01) x10^3u/L Lymphocytes % (24.0-44.0) % Monocytes % (0.0-12.0) % Eosinophils % (0.00-5.0) % Basophils % (0.0-0.4) % Absolute Granulocytes (1.4-6.9) x10^3/uL Basophils # (0-0.4) x10^3/uL PT (9.4-12.5) SECONDS INR (0.8-3.0) Sodium (137-145) mmol/L Potassium (3.5-5.1) mmol/L Chloride (98-107) mmol/L Carbon Dioxide (22-30) mmol/L Anion Gap (5-15) MEQ/L BUN (7-17) mg/dL Creatinine (0.52-1.04) mg/dL Estimated GFR ML/MIN Glucose (74-106) mg/dL Lactic Acid 5.5 H (0.4-2.0) Calcium (8.4-10.2) mg/dL Total Bilirubin (0.2-1.3) mg/dL AST (14-36) U/L ALT (0-35) U/L Alkaline Phosphatase (38-126) U/L Ammonia 180 H (9-30) umol/L Troponin I (0.000-0.034) ng/mL Serum Total Protein (6.3-8.2) g/dL Albumin (3.5-5.0) g/dL Amylase (30-110) U/L Lipase (23-300) U/L Urine Color Yellow (Yellow) Urine Appearance Clear (Clear) Urine pH 5.5 (4.6-8.0) Ur Specific Edison 1.020 (1.005-1.030) Urine Protein Negative (Negative) Urine Glucose (UA) Negative (Negative) mg/dL Urine Ketones Negative (Negative) Urine Blood Negative (Negative) Urine Nitrite Negative (Negative) Urine Bilirubin Negative (Negative) Urine Urobilinogen 1.0 A (0.2) mg/dL Ur Leukocyte Esterase Moderate A (Negative) U Hyaline Cast (Auto) NONE SEEN (0-2) /LPF Urine Microscopic RBC 0-2 (0-5) /HPF Urine Microscopic WBC 51-100 A (0-5) /HPF Ur Epithelial Cells Few (None Seen) /HPF Urine Bacteria Moderate A (None Seen) /HPF Urine Culture Reflexed ORDERED SEPARATELY (NO) 01/20/23 01/20/23 01/20/23 Range/Units 08:50 08:50 08:50 WBC (4.0-10.5) x10^3/uL RBC (4.1-5.4) x10^6/uL Hgb (12.0-16.0) g/dL Hct (35-47) % MCV (78-100) fL MCH (26-32) pg MCHC (32-36) g/dL RDW (11.5-14.0) % Plt Count (150-450) x10^3/uL MPV (7.5-11.0) fL Gran % (36.0-66.0) % Immature Gran % (Auto) (0.00-0.4) % Nucleat RBC Rel Count (0.00-0.1) % Eos # (Auto) (0-0.5) x10^3/uL Immature Gran # (Auto) (0.00-0.03) x10^3u/L Absolute Lymphs (auto) (1.0-4.6) x10^3/uL Absolute Monos (auto) (0.0-1.3) x10^3/uL Absolute Nucleated RBC (0.00-0.01) x10^3u/L Lymphocytes % (24.0-44.0) % Monocytes % (0.0-12.0) % Eosinophils % (0.00-5.0) % Basophils % (0.0-0.4) % Absolute Granulocytes (1.4-6.9) x10^3/uL Basophils # (0-0.4) x10^3/uL PT 12.4 (9.4-12.5) SECONDS INR 1.15 (0.8-3.0) Sodium 145 (137-145) mmol/L Potassium 3.5 (3.5-5.1) mmol/L Chloride 109 H (98-107) mmol/L Carbon Dioxide 20 L (22-30) mmol/L Anion Gap 19.3 H (5-15) MEQ/L BUN 40 H (7-17) mg/dL Creatinine 0.87 (0.52-1.04) mg/dL Estimated GFR > 60.0 ML/MIN Glucose 131 H (74-106) mg/dL Lactic Acid (0.4-2.0) Calcium 9.2 (8.4-10.2) mg/dL Total Bilirubin 1.40 H (0.2-1.3) mg/dL AST 55 H (14-36) U/L ALT 44 H (0-35) U/L Alkaline Phosphatase 140 H (38-126) U/L Ammonia (9-30) umol/L Troponin I 0.013 (0.000-0.034) ng/mL Serum Total Protein 7.1 (6.3-8.2) g/dL Albumin 3.3 L (3.5-5.0) g/dL Amylase 56 (30-110) U/L Lipase 76 (23-300) U/L Urine Color (Yellow) Urine Appearance (Clear) Urine pH (4.6-8.0) Ur Specific Edison (1.005-1.030) Urine Protein (Negative) Urine Glucose (UA) (Negative) mg/dL Urine Ketones (Negative) Urine Blood (Negative) Urine Nitrite (Negative) Urine Bilirubin (Negative) Urine Urobilinogen (0.2) mg/dL Ur Leukocyte Esterase (Negative) U Hyaline Cast (Auto) (0-2) /LPF Urine Microscopic RBC (0-5) /HPF Urine Microscopic WBC (0-5) /HPF Ur Epithelial Cells (None Seen) /HPF Urine Bacteria (None Seen) /HPF Urine Culture Reflexed (NO) 01/20/23 Range/Units 08:50 WBC 13.1 H (4.0-10.5) x10^3/uL RBC 3.26 L (4.1-5.4) x10^6/uL Hgb 10.8 L (12.0-16.0) g/dL Hct 30.9 L (35-47) % MCV 94.8 (78-100) fL MCH 33.1 H (26-32) pg MCHC 35.0 (32-36) g/dL RDW 14.4 H (11.5-14.0) % Plt Count 228 (150-450) x10^3/uL MPV 9.7 (7.5-11.0) fL Gran % 78.2 H (36.0-66.0) % Immature Gran % (Auto) 0.4 (0.00-0.4) % Nucleat RBC Rel Count 0.0 (0.00-0.1) % Eos # (Auto) 0 (0-0.5) x10^3/uL Immature Gran # (Auto) 0.05 H (0.00-0.03) x10^3u/L Absolute Lymphs (auto) 1.90 (1.0-4.6) x10^3/uL Absolute Monos (auto) 0.88 (0.0-1.3) x10^3/uL Absolute Nucleated RBC 0.00 (0.00-0.01) x10^3u/L Lymphocytes % 14.5 L (24.0-44.0) % Monocytes % 6.7 (0.0-12.0) % Eosinophils % 0.0 (0.00-5.0) % Basophils % 0.2 (0.0-0.4) % Absolute Granulocytes 10.22 H (1.4-6.9) x10^3/uL Basophils # 0.03 (0-0.4) x10^3/uL PT (9.4-12.5) SECONDS INR (0.8-3.0) Sodium (137-145) mmol/L Potassium (3.5-5.1) mmol/L Chloride (98-107) mmol/L Carbon Dioxide (22-30) mmol/L Anion Gap (5-15) MEQ/L BUN (7-17) mg/dL Creatinine (0.52-1.04) mg/dL Estimated GFR ML/MIN Glucose (74-106) mg/dL Lactic Acid (0.4-2.0) Calcium (8.4-10.2) mg/dL Total Bilirubin (0.2-1.3) mg/dL AST (14-36) U/L ALT (0-35) U/L Alkaline Phosphatase (38-126) U/L Ammonia (9-30) umol/L Troponin I (0.000-0.034) ng/mL Serum Total Protein (6.3-8.2) g/dL Albumin (3.5-5.0) g/dL Amylase (30-110) U/L Lipase (23-300) U/L Urine Color (Yellow) Urine Appearance (Clear) Urine pH (4.6-8.0) Ur Specific Edison (1.005-1.030) Urine Protein (Negative) Urine Glucose (UA) (Negative) mg/dL Urine Ketones (Negative) Urine Blood (Negative) Urine Nitrite (Negative) Urine Bilirubin (Negative) Urine Urobilinogen (0.2) mg/dL Ur Leukocyte Esterase (Negative) U Hyaline Cast (Auto) (0-2) /LPF Urine Microscopic RBC (0-5) /HPF Urine Microscopic WBC (0-5) /HPF Ur Epithelial Cells (None Seen) /HPF Urine Bacteria (None Seen) /HPF Urine Culture Reflexed (NO) - Progress Progress: unchanged Discussed with : Behzad Will see patient in: hospital (observation) Medical Desision Making - Independent Historian Additional History obtained from: Child (Daughter contributed history), EMS, Correction nurse (Hospice nurse consulted by telephone), Blood Bank Worker/EMT - External Record(s) Reviewed Records reviewed as a part of evaluation & management: Inpatient, Discharge Summary - Discussion of managment Care discussed with:: on-call "doc" Reviewed:: Test results Agreed on:: Treatment plan Will see patient: in hospital - Diagnostic Testing Diagnostic test were ordered, analyzed, and reviewed by me: Yes Radiological Interpretation: Interpreted by me (Chest x-ray was obtained and was interpreted by me there were no acute findings or processes identified the film was slightly rotated. In addition a stent was identified in the upper abdomen but its exact positioning was not determined.Post NG placement film shows it to be in good position.), Other (EKG was done which showed a sinus tachycardia of 105 left axis deviation prolonged QT interval nonspecific ST-T wave changes) - Risk of complications The pt has a high risk of morbidity or mortality based on: Drug therapy requiring intensive monitoring for toxicity, Decision regarding hospitilization or escalation of hosp level of care, Decision not to resucitate - Departure Departure Disposition: Observation Clinical Impression: Hepatic encephalopathy, Altered level of consciousness, Pancreatic mass, Hypertension Condition: Serious Critical Care Time: No Referrals: AIDA MCCARTY [Primary Care Provider] - Follow up/PCP as directed
[2023-01-20 09:01] LABS: Absolute Neutrophil Ct (ANC) 10.22 x10^3/uL (1.4-6.9); BASOPHIL % 0.2 % (0.0-0.4); Basophil (Absolute #) 0.03 x10^3/uL (0-0.4); Eosinophil (Absolute #) 0 x10^3/uL (0-0.5); Hematocrit 30.9 % (35-47); Hemoglobin 10.8 g/dL (12.0-16.0); IMMATURE GRAN # 0.05 x10^3u/L (0.00-0.03); IMMATURE GRAN % 0.4 % (0.00-0.4); Lymphocytes % 14.5 % (24.0-44.0); Mean Cell Volume 94.8 fL (78-100); Mean Corpuscular Hemoglobin 33.1 pg (26-32); Mean Platelet Volume 9.7 fL (7.5-11.0); Monocyte (Absolute #) 0.88 x10^3/uL (0.0-1.3); Monocytes % 6.7 % (0.0-12.0); Neutrophil % 78.2 % (36.0-66.0); Platelet Count 228 x10^3/uL (150-450); Red Blood Count 3.26 x10^6/uL (4.1-5.4); Red Cell Distribution Width 14.4 % (11.5-14.0); White Blood Count 13.1 x10^3/uL (4.0-10.5)
[2023-01-20 09:16] LABS: ALBUMIN 3.3 g/dL (3.5-5.0); ALKALINE PHOSPHATASE 140 U/L (38-126); AMYLASE 56 U/L (30-110); ANION GAP 19.3 MEQ/L (5-15); BLOOD UREA NITROGEN 40 mg/dL (7-17); CHLORIDE 109 mmol/L (98-107); Calcium 9.2 mg/dL (8.4-10.2); Carbon Dioxide 20 mmol/L (22-30); Creatinine 1 0.87 mg/dL (0.52-1.04); EST GLOMERULAR FILTRATION RATE > 60.0 ML/MIN; Glucose 131 mg/dL (74-106); INR 1.15 (0.8-3.0); LIPASE 76 U/L (23-300); PROTIME 12.4 SECONDS (9.4-12.5); Potassium 3.5 mmol/L (3.5-5.1); SGOT/AST 55 U/L (14-36); SODIUM 145 mmol/L (137-145); Total Protein 7.1 g/dL (6.3-8.2)
[2023-01-20 09:23] LABS: SGPT/ALT 44 U/L (0-35)
[2023-01-20 09:28] LABS: Appearance Clear (Clear); Bacteria Moderate /HPF (None Seen); Bilirubin Negative (Negative); Blood Negative (Negative); Epithelial Cells Few /HPF (None Seen); Glucose, Urine Negative (Negative); Hyaline Casts NONE SEEN /LPF (0-2); Ketones Negative (Negative); Leukocyte Esterase Moderate (Negative); Nitrite Negative (Negative); Ph 5.5 (4.6-8.0); Protein,Urine Dip Negative (Negative); RBC 0-2 /HPF (0-5); WBC 51-100 /HPF (0-5)
[2023-01-20 09:32] LABS: ADD URINE CULTURE? ORDERED SEPARATELY (NO)
[2023-01-20] MEDS ORDERED: FLAGYL 500 MG IVPB 500 MG/100 ML BAG IV STA (09:47)
[2023-01-20] MEDS ORDERED: ROCEPHIN 1 Gm-D5w 50 ml Bag** 1 G/50 ML IVPB IV STA (09:52)
[2023-01-20] MEDS ORDERED: ROCEPHIN 1 Gm-D5w 50 ml Bag** 1 G/50 ML IVPB IV ONE (10:17)
[2023-01-20] MEDS ORDERED: FLAGYL 500 MG IVPB 500 MG/100 ML BAG IV ONE (10:17)
[2023-01-20] MEDS: Zinc Gluconate 50 MG NG SCH (10:19)
[2023-01-20] MEDS ORDERED: Dextrose 5%-NS IV Solution 1000 ML 1,000 ML IV ONE (10:22)
[2023-01-20] MEDS: Dextrose 5%-NS IV Solution 1000 ML 1,000 ML IV SCH ×2 (10:30→20:01)
[2023-01-20] MEDS ORDERED: DEXTROSE 5%-NORMAL SALINE 500 ML 500 ML IV SCH (10:30)
[2023-01-20] MEDS ORDERED: Enulose 10 GM/15 ML NG SCH (11:00)
[2023-01-20] MEDS ORDERED: Vitamins For Infusion 10 ML INJECTION*** 10 ML, THIAMINE 200 MG/2 ML*** 100 MG, FOLNATE... IV SCH ×4 (11:00)
[2023-01-20 11:16] LABS: INFLUENZA A NEGATIVE (NEGATIVE); INFLUENZA B NEGATIVE (NEGATIVE); RESPIRATORY SYNCTIAL VIRUS NEGATIVE (Negative); SARS-CoV-2 Xpert Express NEGATIVE (NEGATIVE)
[2023-01-20] MEDS: Enulose 10 GM/15 ML NG SCH ×3 (16:34→23:06)
[2023-01-20] MEDS: FLAGYL 500 MG IVPB 500 MG/100 ML BAG IV SCH ×2 (18:17→23:06)
--- NOTE | 2023-01-20 19:39 | XRAY ---
Indication: NG tube placement. Comparison: Taken earlier in the day Portable chest demonstrates new NG tube traversing chest with tip in proximal stomach. Lungs less inflated with new minimal bibasilar subsegmental atelectasis. Heart not enlarged.
--- NOTE | 2023-01-20 19:39 | XRAY ---
Indication: Acute mental status change. Comparison: November 09, 2022 Portable apical lordotic chest inflated and now cleared. Heart not enlarged. Bony thorax intact again with osteopenia and moderate degenerative changes. Limited upper abdomen again demonstrates partially visualized right ureteral stent and cholecystectomy clips. Impression: Nonacute chest.
[2023-01-20] MEDS ORDERED: TYLENOL SUSPENSION 160 MG/5 ML NG PRN (22:03)
[2023-01-21] MEDS: Dextrose 5%-NS IV Solution 1000 ML 1,000 ML IV SCH (00:39)
[2023-01-21] MEDS: Enulose 10 GM/15 ML NG SCH (04:55)
[2023-01-21] MEDS: FLAGYL 500 MG IVPB 500 MG/100 ML BAG IV SCH (05:04)
[2023-01-21 05:35] LABS: Hematocrit 29.7 % (35-47); Hemoglobin 10.1 g/dL (12.0-16.0); Mean Cell Volume 96.7 fL (78-100); Mean Corpuscular Hemoglobin 32.9 pg (26-32); Mean Platelet Volume 9.9 fL (7.5-11.0); Platelet Count 200 x10^3/uL (150-450); Red Blood Count 3.07 x10^6/uL (4.1-5.4); Red Cell Distribution Width 15.9 % (11.5-14.0); White Blood Count 21.8 x10^3/uL (4.0-10.5)
[2023-01-21 07:02] LABS: ALBUMIN 2.8 g/dL (3.5-5.0); ANION GAP 16.2 MEQ/L (5-15); BILIRUBIN,TOTAL 1.9 mg/dL (0.2-1.3); Calcium 8.3 mg/dL (8.4-10.2); Creatinine 1 0.99 mg/dL (0.52-1.04); EST GLOMERULAR FILTRATION RATE 56.4 ML/MIN; Potassium 3.2 mmol/L (3.5-5.1); Total Protein 6.5 g/dL (6.3-8.2)
[2023-01-21 07:13] VITALS: BP 190/86; PULSE 107; O2SAT 94
[2023-01-21] MEDS ORDERED: Ativan 2 MG/1 ML VIAL IV PRN (08:34)
[2023-01-21] MEDS ORDERED: MORPHINE SULFATE 2 MG INJ IV PRN (08:34)
[2023-01-21] MEDS ORDERED: Vitamins For Infusion 10 ML INJECTION*** 10 ML, THIAMINE 200 MG/2 ML*** 100 MG, FOLNATE... IV PRN ×4 (09:00)
[2023-01-21] MEDS ORDERED: ZOFRAN ODT 4 MG PO PRN (09:59)
[2023-01-21] MEDS ORDERED: Enulose 10 GM/15 ML PO SCH (10:00)
[2023-01-21] MEDS ORDERED: hydroDIURIL 25 MG PO SCH (10:00)
[2023-01-21] MEDS ORDERED: QUINAPRIL HCL 20 MG PO SCH (10:00)
[2023-01-21] MEDS ORDERED: NON-FORMULARY ITEM (Potassium Chloride [Potassium Chloride] 8 MEQ Tablet.Er) PO SCH (10:00)
[2023-01-21] MEDS ORDERED: Lasix 40 MG PO SCH (10:00)
[2023-01-21] MEDS ORDERED: MAG-OX 400 PO SCH (10:00)
[2023-01-21] MEDS ORDERED: NORVASC 5 MG PO SCH (10:00)
[2023-01-21] MEDS ORDERED: Paxil 20 MG PO SCH (10:00)
[2023-01-21] MEDS: Zinc Gluconate 50 MG NG SCH (10:35)
[2023-01-21] MEDS ORDERED: Klor Con PO SCH (11:00)
[2023-01-21] MEDS ORDERED: Accupril 10MG Tablet PO SCH (11:00)
--- NOTE | 2023-01-29 21:58 | PCM.SSS ---
History of Present Illness - Chief Complaint Chief Complaint: Hepatic encephalopathy Date: 01/21/23 History of Present Illness: Patient is an 87-year-old white female DNR hospice patient who presents by ambulance with a history of being found breathing but unresponsive. Patient has a history of altered mental status in the past with an encephalopathy due to hyperammonemia she also has history of cirrhosis of the liver hypertension a benign pancreatic mass and hypokalemia. Patient also besides being unresponsive today nursing staff from hospice reports she had several vomiting episodes yesterday was treated with Zofran every 4 hours her last dose at 2 AM today she has not had any further vomiting. Patient also had patient also had a recent urinary tract infection. - Review of Systems Constitutional: Lethargy, Weight Loss Eyes: No Symptoms Ears, Nose, & Throat: No Symptoms Respiratory: No Symptoms Cardiac: No Symptoms Abdominal/Gastrointestinal: Nausea, Vomiting Genitourinary Symptoms: No Symptoms Musculoskeletal: No Symptoms Skin: No Symptoms Medications & Allergies Home Medications: Home Medication List Amlodipine Besylate 5 mg [Norvasc 5 mg] 5 mg PO DAILY 09/25/13 [History Confirmed 01/20/23] Hydrochlorothiazide 25 mg [hydroDIURIL 25 MG] 25 mg PO DAILY 09/25/13 [History Confirmed 01/20/23] Quinapril HCl 20 mg PO DAILY 09/25/13 [History Confirmed 01/20/23] Furosemide [Lasix] 40 mg PO DAILY 11/09/22 [History Confirmed 01/20/23] Magnesium Oxide 400 mg [Mag-Ox 400] 400 mg PO DAILY 11/09/22 [History Confirmed 01/20/23] Paroxetine HCl 20 mg [Paxil 20 MG] 20 mg PO DAILY 11/09/22 [History Confirmed 01/20/23] Potassium Chloride 8 meq PO DAILY 11/09/22 [History Confirmed 01/20/23] Lactulose [Enulose] 15 ml PO BID 01/20/23 [History Confirmed 01/20/23] Ondansetron ODT 4 MG [Zofran Odt 4 mg] 4 mg PO Q6HPRN PRN 01/20/23 [History Confirmed 01/20/23] Allergies/Adverse Reactions: Allergies Allergy/AdvReac Type Severity Reaction Status Date / Time No Known Drug Allergies Allergy Verified 01/20/23 08:37 - Past Medical History Past Medical History: Yes Neurological History: No Pertinent History ENT History: Cataracts, Macular Degeneration, Other Cardiac History: Hypertension Respiratory History: Other Endocrine Medical History: No Pertinent History Musculoskelatal History: Osteoarthritis GI Medical History: GERD, Hemorrhoids, Polyps, Other History: No Pertinent History Pyscho-Social History: No Pertinent History Reproductive Disorders: No Pertinent History Comment: CARPAL TUNNEL SX NIKI 1996, CHOLECYSTECTOMY 2000, CATARACT SURGERY AND IMPLANTS 2003, LASER SURGERY BOTH EYES 2004 AND 2008 DUE TO FLOATERS. 11/05/22 - patient had surgery at to remove stents from pancreas and common bile duct. 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 - Female History Are you now?: No - Past Surgical History Past Surgical History: Yes Neuro Surgical History: No Pertinent History Cardiac History: No Pertinent History Respiratory Surgery: No Pertinent History GI Surgical History: Cholecystectomy, Pancreatic Surgery, Other Genitourinary Surgical Hx: No Pertinent History Female Surgical History: Hysterectomy, Other Other Surgical History: bilateral cataracts. bilateral carpel tunnel. bladder tie up. pancreatic stents- - Social History Smoking Status: Never smoker Exposure to second hand smoke: No Alcohol: None Drug Use: none - Physical Exam General Appearance: no apparent distress, lethargy Neurologic Exam: motor weakness (encephalopathy noted), No motor deficits Eye Exam: eyes nml inspection Ears, Nose, Throat Exam: normal ENT inspection, moist mucous membranes Neck Exam: normal inspection, non-tender, supple Respiratory Exam: normal breath sounds, lungs clear, No respiratory distress Cardiovascular Exam: regular rate/rhythm, normal heart sounds Gastrointestinal/Abdomen Exam: soft, normal bowel sounds, No tenderness, No mass Back Exam: normal inspection, No CVA tenderness, No vertebral tenderness Extremity Exam: normal inspection, normal range of motion Skin Exam: normal color, warm, dry, No rash Lymphatic Exam: No adenopathy Results - Labs Lab/Micro Results: Microbiology 01/20/23 08:50 Blood Culture Gram Stain - Final Blood Not Reportable Blood Culture - Final NO GROWTH 01/20/23 09:17 Urine Culture - Final Urine, Catheterized Pseudomonas Aeruginosa Assessment/Plan (1) Altered level of consciousness Status: Acute Code(s): R40.4 - TRANSIENT ALTERATION OF AWARENESS (2) Hepatic encephalopathy Status: Acute Code(s): K76.82 - HEPATIC ENCEPHALOPATHY (3) Pancreatic mass Status: Acute (4) Cirrhosis of liver Status: Suspected (5) Encephalopathy due to ammonia Status: Resolved Code(s): T59.891A - TOXIC EFFECT OF GASES, FUMES AND VAPORS, ACCIDENTAL, INIT; G92.8 - OTHER TOXIC ENCEPHALOPATHY Hospital Summary - Hospital Course Hospital Course: Pt. a hospice patient when found unresponsive the family rushed to er, upon arrival to er treatment initiated, pt. status did not change, the family opted to stop aggressive attempts to resuscitate and have the patient discharged to [facility] with continued hospice care. - Vitals & Intake/Output Vital Signs: Vital Signs Temperature 100.4 F 01/21/23 07:00 Pulse Rate 107 H 01/21/23 09:24 Respiratory Rate 20 01/21/23 09:24 Blood Pressure 190/86 01/21/23 09:24 O2 Sat by Pulse Oximetry 94 L 01/21/23 07:00 - Lab Result Diagrams: 01/21/23 05:32 01/21/23 05:32 Micro Results-Entire Visit: Microbiology 01/20/23 08:50 Blood Culture Gram Stain - Final Blood Not Reportable Blood Culture - Final NO GROWTH 01/20/23 09:17 Urine Culture - Final Urine, Catheterized Pseudomonas Aeruginosa - Procedures and Test Procedures and Tests throughout Hospitalization: Therapy Orders & Screens 01/20/23 14:17 OT Screen per Nursing Assess ONCE Comment: Protocol Order Physician Instructions: Greater than 3 points order OT Admission Screening Reason For Exam: Triggered on Admission Diagnosis: Hepatic encephalopathy Open Wound/Cellutlitis/Pressure Ulcers: No Acute Fx/ORIF/Change in wt bearing status: No Severe MUSCULOSKELETAL pain: No ADL Dysfunction: Yes Acute CVA w/Hemiparesis/Hemiplegia: No Decreased Functional Mobility/Strength: Yes Sprain/Strain: No Acute Post-op Mobility Dysfunction: No Total Points: 4 PT Screen per Nursing Assess ONCE Comment: Protocol Order Physician Instructions: Greater than 3 points order PT Admission Screenin Reason For Exam: Triggered on Admission Diagnosis: Hepatic encephalopathy Open Wound/Cellutlitis/Pressure Ulcers: No Acute Fx/ORIF/Change in wt bearing status: No Severe MUSCULOSKELETAL pain: No ADL Dysfunction: Yes Acute CVA w/Hemiparesis/Hemiplegia: No Decreased Functional Mobility/Strength: Yes Sprain/Strain: No Acute Post-op Mobility Dysfunction: No Total Points: 4 - Discharge Discharge Date: 01/21/23 Disposition: Hospice @ [facility] Condition: Serious Prescriptions: No Action Hydrochlorothiazide 25 mg [hydroDIURIL 25 MG] 25 mg PO DAILY Amlodipine Besylate 5 mg [Norvasc 5 mg] 5 mg PO DAILY Quinapril HCl 20 mg PO DAILY Magnesium Oxide 400 mg [Mag-Ox 400] 400 mg PO DAILY Potassium Chloride 8 meq PO DAILY Furosemide [Lasix] 40 mg PO DAILY Paroxetine HCl 20 mg [Paxil 20 MG] 20 mg PO DAILY Lactulose [Enulose] 15 ml PO BID Ondansetron ODT 4 MG [Zofran Odt 4 mg] 4 mg PO Q6HPRN PRN PRN Reason: Nausea Instructions: Palliative Care Additional Instructions: [facility] TO RE-ASSUME CARE
== END 2023-01-21 11:05 | disposition hospice, home (50) ==
LOC: ED 08:27 → MED SURG 12:15
PROVIDERS: ADMIT Family Medicine; ATTEND Family Medicine
DX: R40.4 Transient alteration of awareness (principal); K76.82 Hepatic encephalopathy; K74.60 Unspecified cirrhosis of liver; K86.9 Disease of pancreas, unspecified; I10 Essential (primary) hypertension; E87.6 Hypokalemia; T59.891A Toxic effect of other specified gases, fumes and vapors, accidental (unintentional), initial encounter; G92.8 Other toxic encephalopathy; Z79.899 Other long term (current) drug therapy; Z20.828 Contact with and (suspected) exposure to other viral communicable diseases
CPT/HCPCS: 0241U; 36415; 51702; 71045; 80053; 81001; 82140; 82150; 83605; 83690; 83880; 84134; 84484; 85025; 85027; 85610; 87040; 87077; 87086; 87186; 93005; 96360; 96365; 96367; 96368; 99285; G0378; J0696; J2060; J2270; A9270-GY